=== PATIENT | female | born 1985 | race Caucasian/White ===

== ENCOUNTER 2024-05-18 15:44 | Emergency (ER) | payer MEDICAID, OTHER ==
[~2024-05-18] VITALS: Ht 154.9 cm; Wt 76.7 kg
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
[2024-05-18] MEDS ORDERED: FLUC150T38 PO (16:23)
[2024-05-18] MEDS ORDERED: CLIN1CAP70 PO (16:23)
[2024-05-18] MEDS ORDERED: IBUP-1455 PO (16:23)
[2024-05-18] MEDS ORDERED: HYD1TP TOP (16:23)
[2024-05-18] MEDS: cefTRIAXone SOD 1,000 MG VL IM ONE (17:00)
[2024-05-18 17:07] VITALS: BP 130/87; PULSE 90; RESP 18; TEMP 98.2; O2SAT 98
== END 2024-05-18 17:12 | disposition home or self-care (01) ==
LOC: ER 15:44
DX: K04.7 Periapical abscess without sinus (principal); L03.211 Cellulitis of face; B37.31 Acute candidiasis of vulva and vagina; L24.9 Irritant contact dermatitis, unspecified cause; F17.210 Nicotine dependence, cigarettes, uncomplicated; F12.90 Cannabis use, unspecified, uncomplicated; Z79.899 Other long term (current) drug therapy; Z98.890 Other specified postprocedural states
CPT/HCPCS: 96372; 99283; J0696

== ENCOUNTER 2024-06-22 14:20 | Emergency (ER) | payer MEDICAID ==
[~2024-06-22] VITALS: Ht 154.9 cm; Wt 70.0 kg
[~2024-06-22 14:20] MED LIST: CLIN1CAP70 PO; FLUC150T38 PO; HYD1TP TOP; IBUP-1455 PO
[2024-06-22] MEDS: SODIUM CHLORIDE 0.9% 1,000 ML IV ONE (14:51)
[2024-06-22] MEDS: cefTRIAXone 1GM/50ML D5W 50 ML IV ONE (14:51)
[2024-06-22] MEDS: ONDANSETRON HCL 4 MG/2 ML VIAL IV ONE (14:54)
[2024-06-22] MEDS: MORPHINE SULFATE 4 MG/ML SYR/VIAL IV ONE (14:55)
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
[2024-06-22 16:03] VITALS: BP 142/95; PULSE 74; RESP 18; TEMP 97.5; O2SAT 97
--- NOTE | 2024-06-22 16:23 | DVH ---
EXAM: CT HEAD WITHOUT CONTRAST INDICATION: headinjury TECHNIQUE: CT of the head without intravenous contrast. Radiation Dose Information: CT Dose: CTDI volume is 53.99 mGy. Dose-length product is 863.9 mGy*cm The dose indicators for CT are the volume Computed Tomography (CT) Dose Index (CTDIvol) and the Dose Length Product (DLP), and are measured in units of mGy and mGy-cm, respectively. These indicators are not patient dose, but values generated from the CT scanner acquisition factors. The report includes radiation exposure data for exposures received during this examination. COMPARISON: None FINDINGS: There is no evidence of acute intracranial hemorrhage, extra-axial collection, mass effect, midline s hift, herniation or hydrocephalus. The ventricles, sulci and cisterns are age appropriate. The lafleur-white differentiation is intact. Patchy periventricular and subcortical white matter hypoattenuation is nonspecific but may be related to small vessel ischemic disease. The visualized paranasal sinuses and mastoid air cells are clear. Implant in the left temporal subcutaneous tissues creating extensive beam hardening artifact correlat e with clinical history. IMPRESSION: 1. Subcutaneous implant in the temporal tissues on the left. Extensive beam hardening artifact noted. 2. No acute intracranial hemorrhage. 3. No CT findings of territorial ischemia.
== END 2024-06-22 16:29 | disposition short-term general hospital (02) ==
LOC: ER 14:20
DX: T20.30XA Burn of third degree of head, face, and neck, unspecified site, initial encounter (principal); F17.210 Nicotine dependence, cigarettes, uncomplicated; Z79.899 Other long term (current) drug therapy; Z79.1 Long term (current) use of non-steroidal anti-inflammatories (NSAID); X08.8XXA Exposure to other specified smoke, fire and flames, initial encounter; Y93.89 Activity, other specified; Y92.89 Other specified places as the place of occurrence of the external cause; Y99.8 Other external cause status
CPT/HCPCS: 70450; 96365; 96375; 99291; J0696; J2270; J2405; J7030